=== PATIENT | male | born 1990 | race Caucasian/White ===

== ENCOUNTER 2018-10-09 16:17 | Emergency (ER) | payer OTHER ==
[2018-10-09] MEDS ORDERED: Ketorolac 60 MG/2 ML SDV IM ONE (17:27)
--- NOTE | 2018-10-09 17:32 | EDM.PDOC ---
ED HPI GENERAL MEDICAL PROBLEM - General Chief Complaint: Back Pain or Injury Stated Complaint: BACK INJURY Time Seen by Provider: 10/09/18 17:20 Source of Information: Reports: Patient History Limitations: Reports: No Limitations - History of Present Illness INITIAL COMMENTS - FREE TEXT/NARRATIVE: History of present illness: []Patient has been pushing a 400 pound Tong at work and in the last 2 days has been having more more upper back pain mostly on the right side between the shoulder blades. Patient has had intermittent numbness and tingling to his right hand denies any neck pain or weakness. Patient does not have any shoulder joint pain. Review of systems: As per history of present illness and below otherwise all systems reviewed and negative. Past medical history: As per history of present illness and as reviewed below otherwise noncontributory. Surgical history: As per history of present illness and as reviewed below otherwise noncontributory. Social history: No reported history of drug or alcohol abuse. Family history: As per history of present illness and as reviewed below otherwise noncontributory. Physical exam: General: Well developed, well nourished in NAD HEENT: Atraumatic, normocephalic, pupils reactive, negative for conjunctival pallor or scleral icterus, mucous membranes moist, throat clear, neck supple, nontender, no cervical tenderness to palpation no step-offs trachea midline. Lungs: Clear to auscultation, breath sounds equal bilaterally, chest nontender. Upper posterior chest tender below the scapula on the right there is no vertebral tenderness 6 spine Heart: S1S2, regular, negative for clicks, rubs, or JVD. Abdomen: NABS, Soft, nondistended, nontender. Negative for masses or hepatosplenomegaly. Negative for costovertebral tenderness. Pelvis: Stable nontender. Genitourinary: Deferred. Rectal: Deferred. Extremities: Atraumatic, negative for cords or calf pain. Neurovascular unremarkable. Neuro: Awake, alert, oriented. Cranial nerves II through XII unremarkable. Cerebellum unremarkable. Motor and sensory unremarkable throughout. Exam nonfocal. Skin:warm and dry Diagnostics: None Therapeutics: Toradol IM ED Course: Unremarkable Impression: Musculoskeletal spasm upper back Prescriptions: Flexeril Plan: Follow-up with PMD, request physical therapy., Heat, ibuprofen and Flexeril as directed. Definitive disposition and diagnosis as appropriate pending reevaluation and review of above. Right Back Pain Score (Numeric/FACES): 4 - Related Data Allergies Allergy/AdvReac Type Severity Reaction Status Date / Time No Known Allergies Allergy Verified 10/09/18 16:36 Home Meds: Home Meds Cyclobenzaprine [Flexeril] 10 mg PO BID PRN #12 tab 10/09/18 [Rx] Past Medical History - Past Health History Medical/Surgical History: Denies Medical/Surgical History - Past Surgical History GI Surgical History: Reports: Appendectomy Musculoskeletal Surgical History: Reports: Arthroscopic Knee, Arthroscopic Procedure, Shoulder Surgery Social & Family History - Family History Family Medical History: Noncontributory - Tobacco Use Smoking Status *Q: Current Every Day Smoker Years of Tobacco use: 19 Packs/Tins Daily: 0.5 - Recreational Drug Use Recreational Drug Use: No ED ROS GENERAL - Review of Systems Review Of Systems: ROS reveals no pertinent complaints other than HPI. ED EXAM, UPPER BACK/NECK PAIN - Physical Exam Exam: See Below (See history of present illness) Course - Vital Signs Last Recorded V/S: Last Vital Signs Temp Pulse 80 10/09/18 16:30 Resp 18 10/09/18 16:30 BP 117/61 10/09/18 16:30 Pulse Ox 98 10/09/18 16:30 - Orders/Labs/Meds Meds: Medications Discontinued Medications Generic Name Dose Route Start Last Admin Trade Name Freq PRN Reason Stop Dose Admin Ketorolac Tromethamine 60 mg 10/09/18 17:27 Toradol IM 10/09/18 17:28 ONETIME ONE Departure - Departure Time of Disposition: 17:31 Disposition: Home, Self-Care 01 Condition: Good Clinical Impression: Upper back pain on right side - Discharge Information *PRESCRIPTION DRUG MONITORING PROGRAM REVIEWED*: No *COPY OF PRESCRIPTION DRUG MONITORING REPORT IN PATIENT JOHNSON: No Prescriptions: Cyclobenzaprine [Flexeril] 10 mg PO BID PRN #12 tab PRN Reason: Pain Referrals: PCP,Unknown [Primary Care Provider] - Forms: ED Department Discharge Additional Instructions: The following information is given to patients seen in the emergency department who are being discharged to home. This information is to outline your options for follow-up care. We provide all patients seen in our emergency department with a follow-up referral. The need for follow-up, as well as the timing and circumstances, are variable depending upon the specifics of your emergency department visit. If you don't have a primary care physician on staff, we will provide you with a referral. We always advise you to contact your personal physician following an emergency department visit to inform them of the circumstance of the visit and for follow-up with them and/or the need for any referrals to a consulting specialist. The emergency department will also refer you to a specialist when appropriate. This referral assures that you have the opportunity for follow-up care with a specialist. All of these measure are taken in an effort to provide you with optimal care, which includes your follow-up. Under all circumstances we always encourage you to contact your private physician who remains a resource for coordinating your care. When calling for follow-up care, please make the office aware that this follow-up is from your recent emergency room visit. If for any reason you are refused follow-up, please contact the [facility] Emergency Department at and asked to speak to the emergency department charge nurse.
== END 2018-10-09 17:50 | disposition home or self-care (01) ==
LOC: MW.ED 16:17
DX: M62.830 Muscle spasm of back (principal); F17.210 Nicotine dependence, cigarettes, uncomplicated
CPT/HCPCS: 96372; 99283; J1885

== ENCOUNTER 2018-11-26 13:42 | Emergency (ER) | payer SELFPAY ==
--- NOTE | 2018-11-26 13:51 | EDM.PDOC ---
ED HPI GENERAL MEDICAL PROBLEM - General Chief Complaint: Lower Extremity Injury/Pain Stated Complaint: INJURED ANKLE Time Seen by Provider: 11/26/18 13:47 - History of Present Illness INITIAL COMMENTS - FREE TEXT/NARRATIVE: HISTORY AND PHYSICAL: History of present illness: Past 28-year-old white male presents with a concern of acute left knee and right ankle injury occurred 2 days prior when he fell he denies other trauma or concern Review of systems: As per history of present illness and below otherwise all systems reviewed and negative. Past medical history: As per history of present illness and as reviewed below otherwise noncontributory. Surgical history: As per history of present illness and as reviewed below otherwise noncontributory. Social history: No reported history of drug or alcohol abuse. Family history: As per history of present illness and as reviewed below otherwise noncontributory. Physical exam: HEENT: Atraumatic, normocephalic, pupils reactive, negative for conjunctival pallor or scleral icterus, mucous membranes moist, throat clear, neck supple, nontender, trachea midline. Lungs: Clear to auscultation, breath sounds equal bilaterally, chest nontender. Heart: S1S2, regular, negative for clicks, rubs, or JVD. Abdomen: Soft, nondistended, nontender. Negative for masses or hepatosplenomegaly. Negative for costovertebral tenderness. Pelvis: Stable nontender. Genitourinary: Deferred. Rectal: Deferred. Extremities: Left knee swelling and tenderness in the region of the medial collateral ligament and right ankle has some mild tenderness in the region of lateral malleolus there is no gross deformity joint is grossly stable neurovascular exam is normal Neuro: Awake, alert, oriented. Cranial nerves II through XII unremarkable. Cerebellum unremarkable. Motor and sensory unremarkable throughout. Exam nonfocal. Diagnostics: X-ray left knee/right ankle Therapeutics: None Impression: #1 left knee injury/right ankle injury Definitive disposition and diagnosis as appropriate pending reevaluation and review of above. - Related Data Allergies Allergy/AdvReac Type Severity Reaction Status Date / Time No Known Allergies Allergy Verified 11/26/18 13:48 Home Meds: Home Meds . [No Known Home Meds] 11/26/18 [History] Past Medical History - Past Health History Medical/Surgical History: Denies Medical/Surgical History - Past Surgical History GI Surgical History: Reports: Appendectomy Musculoskeletal Surgical History: Reports: Arthroscopic Knee, Arthroscopic Procedure, Shoulder Surgery Social & Family History - Family History Family Medical History: Noncontributory Review of Systems - Review of Systems Review Of Systems: ROS reveals no pertinent complaints other than HPI. ED EXAM, GENERAL - Physical Exam Exam: See Below (dictation) Course - Vital Signs Last Recorded V/S: Last Vital Signs Temp 36.4 C 11/26/18 13:48 Pulse 111 H 11/26/18 13:48 Resp 18 11/26/18 13:48 BP 131/91 H 11/26/18 13:48 Pulse Ox 97 11/26/18 13:48 - Orders/Labs/Meds Orders: Active Orders 24 hr Category Date Time Status Ankle Min 3V Rt [CR] Stat Exams 11/26/18 13:49 Taken Departure - Departure Time of Disposition: 14:34 Disposition: Home, Self-Care 01 Condition: Good Clinical Impression: Ankle injury, Knee injury - Discharge Information Referrals: PCP,Unknown [Primary Care Provider] - Forms: ED Department Discharge Additional Instructions: The following information is given to patients seen in the emergency department who are being discharged to home. This information is to outline your options for follow-up care. We provide all patients seen in our emergency department with a follow-up referral. The need for follow-up, as well as the timing and circumstances, are variable depending upon the specifics of your emergency department visit. If you don't have a primary care physician on staff, we will provide you with a referral. We always advise you to contact your personal physician following an emergency department visit to inform them of the circumstance of the visit and for follow-up with them and/or the need for any referrals to a consulting specialist. The emergency department will also refer you to a specialist when appropriate. This referral assures that you have the opportunity for followup care with a specialist. All of these measure are taken in an effort to provide you with optimal care, which includes your followup. Under all circumstances we always encourage you to contact your private physician who remains a resource for coordinating your care. When calling for followup care, please make the office aware that this follow-up is from your recent emergency room visit. If for any reason you are refused follow-up, please contact the [facility] emergency department at and asked to speak to the emergency department charge nurse. [facility] Professional Building [address] [place] [address], [address] [place] [address] Crutches as directed diclofenac as prescribed follow-up orthopedic clinic above as needed as discussed return as needed as discussed - My Orders Last 24 Hours: My Active Orders 11/26/18 13:49 Ankle Min 3V Rt [CR] Stat - Assessment/Plan Last 24 Hours: My Active Orders 11/26/18 13:49 Ankle Min 3V Rt [CR] Stat
--- NOTE | 2018-11-26 14:31 | CR ---
EXAMINATION: Left knee HISTORY: Pain COMPARISON: None TECHNIQUE: 3 views FINDINGS/IMPRESSION: There is no acute osseous abnormality, dislocation, or fracture. Bone mineralization and joint spaces are preserved. There is medial medial and prepatellar soft tissue swelling without an underlying joint effusion.
--- NOTE | 2018-11-26 14:35 | CR ---
EXAMINATION: Right ankle HISTORY: Pain COMPARISON: None TECHNIQUE: 3 views FINDINGS/IMPRESSION: There is no acute osseous abnormality, dislocation, or fracture. Bone mineralization and joint spaces are preserved. Mild soft tissue swelling overlying the anterior aspect of the ankle and overlying the lateral malleolus.
== END 2018-11-26 14:55 | disposition home or self-care (01) ==
LOC: MW.ED 13:42
DX: S89.91XA Unspecified injury of right lower leg, initial encounter (principal); S99.911A Unspecified injury of right ankle, initial encounter; W19.XXXA Unspecified fall, initial encounter
CPT/HCPCS: 73562-26-LT; 73562-LT; 73610-26-RT; 73610-RT; 99283-25

== ENCOUNTER 2020-09-27 00:24 | Emergency (ER) | payer SELFPAY ==
[2020-09-27] MEDS ORDERED: Lactated Ringers 1,000 ML IV ONE (00:34)
[2020-09-27] MEDS ORDERED: LORazepam 2 MG/ML SDV IVPUSH ONE (00:35)
--- NOTE | 2020-09-27 01:11 | CR ---
HISTORY: Chest pain COMPARISON: None available FINDINGS: A portable erect AP view of the chest was obtained at 0053 hours. The lungs are clear. No focal or diffuse infiltrates are present. The heart is normal in size. The mediastinum is normal in appearance. The osseous structures are normal in appearance for the patient`s age. IMPRESSION: Normal portable chest single view. Dictated by Grant Long MD @ Sep 27 2020 1:08AM Signed by Dr. Grant Long @ Sep 27 2020 1:08AM
[2020-09-27 01:30] LABS: ACETAMINOPHEN <2.0 ug/mL; BLOOD UREA NITROGEN,BUN 21 mg/dL (7.0-18.0); CARBON DIOXIDE,CO2 22.6 mmol/L (21.0-32.0); CHLORIDE,CL 99 mmol/L (98-107); GLUCOSE RANDOM 119 mg/dL (74-106); POTASSIUM,K 3.2 mmol/L (3.5-5.1); SODIUM,NA 138 mmol/L (136-148)
[2020-09-27] MEDS ORDERED: Thiamine 200 MG/2 ML MDV IVPUSH ONE (04:08)
--- NOTE | 2020-09-27 04:54 | CT ---
INDICATION: Transient alteration of awareness TECHNIQUE: CT Head without i.v. contrast. COMPARISON: None FINDINGS: CSF space: The ventricles are normal for age. Brain: No evidence of mass, acute infarction or hemorrhage is seen. No mass-effect or midline shift is seen. The brain parenchyma is otherwise normal in appearance with preservation of the hoffman-white matter junction. Calvarium: The visualized paranasal sinuses are well aerated. The mastoid air cells are clear. The visualized orbits are grossly unremarkable. The calvarium is unremarkable in appearance with no fractures identified. IMPRESSION: 1. No evidence of acute infarction, intracranial hemorrhage, or mass-effect seen. Please note that all CT scans at this facility use dose modulation, iterative reconstruction, and/or weight-based dosing when appropriate to reduce radiation dose to as low as reasonably achievable. Dictated by: Chris Dowd MD @ 09/27/2020 04:54:05 (Electronically Signed)
--- NOTE | 2020-09-27 05:11 | EDM.PDOC ---
<Kyree Redmond - Last Filed: 09/27/20 07:32> ED HPI GENERAL MEDICAL PROBLEM - General Chief Complaint: Drug or Alcohol Abuse Stated Complaint: CHEST PAIN Time Seen by Provider: 09/27/20 00:28 - History of Present Illness INITIAL COMMENTS - FREE TEXT/NARRATIVE: CHIEF COMPLAINT(S): Chest pain HISTORY OF PRESENT ILLNESS: This is a 30-year-old man with a past medical history of substance abuse who comes to the emergency department with a chief complaint of chest pain. The patient states that approximately 3 to 4 hours prior to arrival he started to experience chest pain in his chest and abdomen and describes it as both arms were tingling and numb and that his whole body he would clench. He states that he was able to calm down after a while after taking a deep breaths. He denies any radiation of the chest pain to his back. He denies any associated diaphoresis, nausea or vomiting. Denies any prior history of DVT or PE, recent travel, recent surgery, history of CAD. He states that this all began after he took a "mystery shot." He states that there was for more substance and it. He does not recall or know what is in it. He states that prior to this he smoked marijuana, was not working, and recently was single so he started to use more drugs. He states that he never uses dirty needles. He denies any history of endocarditis. In regards to his substance abuse he uses tobacco, marijuana, heroin, cocaine. He states that he does not drink daily and maybe has 1 beer. REVIEW OF SYSTEMS: Constitutional: Denies fever, chills. Eyes: Denies eye pain Ears, Nose, Mouth, & Throat: Denies earache Cardiovascular: Positive for chest pain Respiratory: Denies shortness of breath Gastrointestinal: Denies Nausea, vomiting, diarrhea, hematochezia. Genitourinary: Denies hematuria MSK: Positive for tensing up all of his muscles. Neurological: Positive for numbness in his bilateral arms. Denies blurred vision, headache, weakness Psychiatric: Denies depression PAST MEDICAL HISTORY: As per history of present illness and as reviewed below otherwise noncontributory. SURGICAL HISTORY: As per history of present illness and as reviewed below otherwise noncontributory. SOCIAL HISTORY: As per history of present illness and as reviewed below otherwise noncontributory. FAMILY HISTORY: As per history of present illness and as reviewed below otherwise noncontributory. EXAMINATION OF ORGAN SYSTEMS/BODY AREAS: Constitutional: Blood pressure was 160/109, heart rate 113, respiratory rate 30 with an oxygen saturation of 98% on room air. Temperature 36.6 General: Anxiously appearing man who is cooperative Psychiatric: Appears anxious Eyes: No scleral icterus or conjunctival erythema pupils were 5 to 6 mm and reactive to light. Extraocular movements were intact. No nystagmus ENMT: Moist mucous membranes. No pharyngeal erythema Cardiovascular: Tachycardic but regular no gallops, murmurs, or rubs. Bilateral upper extremity pulses symmetric and intact. No peripheral edema. No JVD. Respiratory: Lungs clear to auscultation bilaterally. No wheezes, rales, or rhonchi. Gastrointestinal: Soft, non-tender, non-distended. Hyperactive bowel sounds Genitourinary: No suprapubic tenderness Musculoskeletal: Normal range of motion. Skin: The patient has excoriations and small ulcers throughout his body consistent with methamphetamine induced skin picking these areas do not appear to be infected. There are no Osler's nodes or Janeway lesions or petechiae Neurological: Alert, GCS 15 MEDICAL DECISION MAKING AND COURSE IN THE ED WITH INTERPRETATION/REVIEW OF DIAGNOSTIC STUDIES: This is a 30-year-old man a past medical history of substance abuse disorder who comes to the emergency department with atypical chest pain who appears anxious who is tachycardic and hypertensive who appears to be undergoing sympathomimetic response likely secondary to drug usage. Given his chest pain we did obtain an EKG which did not reveal any acute signs of ischemia. Will obtain CBC, coags, lactic acid, CMP, troponin x1 given it is already at the 4-hour maria t., CPK, serum drug screen, urine drug screen and chest x-ray. We will provide the patient with 2 mg of IV Ativan given his sympathomimetic response. Laboratory: CBC is unremarkable. Coags are within normal limits. Lactic acid is 0.9. CMP reveals hypokalemia at 3.2 likely reactive secondary to sympathomimetic response, hyperglycemia at 119, mildly elevated bilirubin at 1.1 without any transaminitis. Troponin is negative. CPK is normal. Salicylates are negative. Tylenol is negative. Alcohol is negative. Repeat Tylenol is negative. Twelve-lead EKG interpreted by myself. Sinus tachycardia at a rate of 114 beats per minute. Normal axis. NJ interval is 160 ms. QRS duration is [address] segments are normal without elevations or depressions. No Q waves present. Hypertrophy not noted. No prior EKGs in our system. Interpretation: Sinus tachycardia dated. The radiological images were viewed by myself along with reading the report from the radiologist. Chest x-ray does not reveal an acute cardiopulmonary process. After period of observation the patient had yet to provide a urine sample. We did attempt to try and get the patient up however he was sleepy and unsteady on his feet. Therefore at this time we will observe the patient. We will try again in a while. On retry the patient was alert and knew he was in the hospital however he was still unsteady on his feet. At this time given his unsteadiness and his drowsiness will obtain a CT head without contrast and do a straight cath for UDS. At the time of our multiple reevaluations his blood pressure and heart rate had significantly improved. The patient was not anxious. He was still having some twitching consistent with methamphetamine intoxication UDS was positive for methamphetamine The radiological images were viewed by myself along with reading the report from the radiologist. CT head without contrast does not reveal any acute intracranial abnormality. After period of observation we did reevaluate the patient. At this time he is alert and oriented x4. The patient does not have a ride home therefore we attempted to contact a girl named "Princess Reyna" And his mother. His mother did answer however she does not live here in [place] and told us to call his father. I did discuss this with the patient. He did provide me with his father's number but he does not want any information shared therefore we cannot use his father to come and pick him up. After approximately 30 more minutes the patient was able to ambulate on his own. Was ANO x4. I did discuss with him at this time that his work-up is negative. I did encourage him to quit methamphetamine use and I discussed that I could provide him with resources to help him with that. He states that he does not want any resources. I did discuss with him that if he were to have any new or worsening symptoms he should return to the emergency department. He was amenable to discharge at this time and had no further questions DISPOSITION: Patient was discharged home in stable condition. CONDITION: Fair PROCEDURES: None FINAL IMPRESSION(S)/DIAGNOSES: 1. Acute chest pain likely secondary to methamphetamine use 2. Acute methamphetamine intoxication Kyree Redmond M.D. Treatments GUT CARRIER: Reports: EKG Generalized Pain Score (Numeric/FACES): 6 - Related Data Allergies Allergy/AdvReac Type Severity Reaction Status Date / Time No Known Allergies Allergy Verified 09/27/20 00:30 Home Meds: Home Meds . [No Known Home Meds] 11/26/18 [History] Past Medical History - Past Health History Medical/Surgical History: Denies Medical/Surgical History HEENT History: Reports: None Cardiovascular History: Reports: None Respiratory History: Reports: None Gastrointestinal History: Reports: None Genitourinary History: Reports: None Musculoskeletal History: Reports: None Neurological History: Reports: None Psychiatric History: Reports: Addiction Endocrine/Metabolic History: Reports: None Hematologic History: Reports: None Immunologic History: Reports: None Oncologic (Cancer) History: Reports: None Dermatologic History: Reports: None - Infectious Disease History Infectious Disease History: Reports: None - Past Surgical History Head Surgeries/Procedures: Reports: None HEENT Surgical History: Reports: None Cardiovascular Surgical History: Reports: None Respiratory Surgical History: Reports: None GI Surgical History: Reports: Appendectomy Male Surgical History: Reports: None Endocrine Surgical History: Reports: None Neurological Surgical History: Reports: C-Spine Musculoskeletal Surgical History: Reports: Arthroscopic Knee, Arthroscopic Procedure, Shoulder Surgery, Other (See Below) Other Musculoskeletal Surgeries/Procedures:: reconstructive surgery on both shoulders and hands Oncologic Surgical History: Reports: None Dermatological Surgical History: Reports: None Social & Family History - Family History Family Medical History: No Pertinent Family History - Caffeine Use Caffeine Use: Reports: Coffee, Soda - Recreational Drug Use Recreational Drug Use: Yes Drug Use in Last 12 Months: Yes Recreational Drug Type: Reports: Cocaine, Heroin, Methamphetamine Recreational Drug Use Frequency: Binges ED ROS GENERAL - Review of Systems Review Of Systems: See Below ED EXAM, GENERAL - Physical Exam Exam: See Below Departure - Departure Time of Disposition: 07:33 Disposition: Home, Self-Care 01 Condition: Fair Clinical Impression: Methamphetamine intoxication - Discharge Information *PRESCRIPTION DRUG MONITORING PROGRAM REVIEWED*: No *COPY OF PRESCRIPTION DRUG MONITORING REPORT IN PATIENT JOHNSON: No Instructions: Finding Treatment for Addiction, Methamphetamines Use Disorder Referrals: PCP,None [Primary Care Provider] - Forms: ED Department Discharge Additional Instructions: Your evaluated today on an emergent basis. At this time your work-up was negative. At this time I do believe your symptoms are secondary to using methamphetamine. Methamphetamine use has risks including heart attack, addiction, and even . I do recommend you quit using methamphetamine. Please follow-up with primary care for further options for rehabilitation. Return to the emergency department if you have any new or worsening symptoms. [facility] [address] [place] [id number] [facility] [address] [place] [id number] The patient is informed of any results of their evaluation and diagnostic workup and all questions are answered. They are given discharge instructions and return precautions. The patient is stable for discharge. The patient states they understand and agree with the plan and that they will return if their symptoms get worse or if they have any new concerns. The following information is given to patients seen in the emergency department who are being discharged to home. This information is to outline your options for follow-up care. We provide all patients seen in our emergency department with a follow-up referral. The need for follow-up, as well as the timing and circumstances, are variable depending upon the specifics of your emergency department visit. If you don't have a primary care physician on staff, we will provide you with a referral. We always advise you to contact your personal physician following an emergency department visit to inform them of the circumstance of the visit and for follow-up with them and/or the need for any referrals to a consulting specialist. The emergency department will also refer you to a specialist when appropriate. This referral assures that you have the opportunity for follow-up care with a specialist. All of these measure are taken in an effort to provide you with optimal care, which includes your follow-up. Under all circumstances we always encourage you to contact your private physician who remains a resource for coordinating your care. When calling for follow-up care, please make the office aware that this follow-up is from your recent emergency room visit. If for any reason you are refused follow-up, please contact the [facility] Emergency Department at and asked to speak to the emergency department charge nurse. Sepsis Event Note (ED) - Evaluation Sepsis Screening Result: No Definite Risk <Rashawn Beckett - Last Filed: 09/27/20 17:12> Course - Vital Signs Last Recorded V/S: Last Vital Signs Temp 98.2 F 09/27/20 07:33 Pulse 112 H 09/27/20 07:33 Resp 18 09/27/20 07:33 BP 134/92 H 09/27/20 07:33 Pulse Ox 97 09/27/20 07:33 - Orders/Labs/Meds Labs: Laboratory Tests 09/27/20 09/27/20 09/27/20 Range/Units 00:48 00:48 00:48 WBC 7.98 (4.0-11.0) K/uL RBC 4.32 L (4.50-5.90) M/uL Hgb 14.4 (13.0-17.0) g/dL Hct 39.7 (38.0-50.0) % MCV 91.9 (80.0-98.0) fL MCH 33.3 H (27.0-32.0) pg MCHC 36.3 (31.0-37.0) g/dL RDW Std Deviation 35.1 (28.0-62.0) fl RDW Coeff of Tim 11 (11.0-15.0) % Plt Count 237 (150-400) K/uL MPV 8.90 (7.40-12.00) fL Neut % (Auto) 78.5 (48.0-80.0) % Lymph % (Auto) 13.8 L (16.0-40.0) % [place] % (Auto) 6.6 (0.0-15.0) % Eos % (Auto) 0.8 (0.0-7.0) % Baso % (Auto) 0.3 (0.0-1.5) % Neut # (Auto) 6.3 H (1.4-5.7) K/uL Lymph # (Auto) 1.1 (0.6-2.4) K/uL [place] # (Auto) 0.5 (0.0-0.8) K/uL Eos # (Auto) 0.1 (0.0-0.7) K/uL Baso # (Auto) 0.0 (0.0-0.1) K/uL INR 1.08 Lactate (0.20-2.00) mmol/L Sodium 138 (136-148) mmol/L Potassium 3.2 L (3.5-5.1) mmol/L Chloride 99 (98-107) mmol/L Carbon Dioxide 22.6 (21.0-32.0) mmol/L BUN 21 H (7.0-18.0) mg/dL Creatinine 1.3 (0.8-1.3) mg/dL Est Cr Clr Drug Dosing 85.29 mL/min Estimated GFR (MDRD) > 60.0 ml/min Glucose 119 H (74-106) mg/dL POC Glucose (60-110) mg/dL Calcium 9.4 (8.5-10.1) mg/dL Magnesium 1.9 (1.8-2.4) mg/dL Total Bilirubin 1.1 H (0.2-1.0) mg/dL AST 23 (15-37) IU/L ALT 34 (14-63) IU/L Alkaline Phosphatase 78 (46-116) U/L Creatine Kinase (26-308) U/L Troponin I < 0.050 (0.000-0.056) ng/mL Total Protein 7.2 (6.4-8.2) g/dL Albumin 4.0 (3.4-5.0) g/dL Globulin 3.2 (2.6-4.0) g/dL Albumin/Globulin Ratio 1.3 (0.9-1.6) Salicylates 11.4 (0-20) mg/dL Urine Opiates Screen (NEGATIVE) Ur Oxycodone Screen (NEGATIVE) Urine Methadone Screen (NEGATIVE) Acetaminophen <2.0 ug/mL Ur Barbiturates Screen (NEGATIVE) Ur Phencyclidine Scrn (NEGATIVE) Ur Amphetamine Screen (NEGATIVE) U Methamphetamines Scrn (NEGATIVE) U Benzodiazepines Scrn (NEGATIVE) U Cocaine Metab Screen (NEGATIVE) U Marijuana (THC) Screen (NEGATIVE) Ethyl Alcohol < 3.0 mg/dL SARS-CoV-2 RNA (BEHZAD) (NEGATIVE) 09/27/20 09/27/2021 Range/Units 00:48 00:48 04:05 WBC (4.0-11.0) K/uL RBC (4.50-5.90) M/uL Hgb (13.0-17.0) g/dL Hct (38.0-50.0) % MCV (80.0-98.0) fL MCH (27.0-32.0) pg MCHC (31.0-37.0) g/dL RDW Std Deviation (28.0-62.0) fl RDW Coeff of Tim (11.0-15.0) % Plt Count (150-400) K/uL MPV (7.40-12.00) fL Neut % (Auto) (48.0-80.0) % Lymph % (Auto) (16.0-40.0) % [place] % (Auto) (0.0-15.0) % Eos % (Auto) (0.0-7.0) % Baso % (Auto) (0.0-1.5) % Neut # (Auto) (1.4-5.7) K/uL Lymph # (Auto) (0.6-2.4) K/uL [place] # (Auto) (0.0-0.8) K/uL Eos # (Auto) (0.0-0.7) K/uL Baso # (Auto) (0.0-0.1) K/uL INR Lactate 0.9 (0.20-2.00) mmol/L Sodium (136-148) mmol/L Potassium (3.5-5.1) mmol/L Chloride (98-107) mmol/L Carbon Dioxide (21.0-32.0) mmol/L BUN (7.0-18.0) mg/dL Creatinine (0.8-1.3) mg/dL Est Cr Clr Drug Dosing mL/min Estimated GFR (MDRD) ml/min Glucose (74-106) mg/dL POC Glucose 71 (60-110) mg/dL Calcium (8.5-10.1) mg/dL Magnesium (1.8-2.4) mg/dL Total Bilirubin (0.2-1.0) mg/dL AST (15-37) IU/L ALT (14-63) IU/L Alkaline Phosphatase (46-116) U/L Creatine Kinase 111 (26-308) U/L Troponin I (0.000-0.056) ng/mL Total Protein (6.4-8.2) g/dL Albumin (3.4-5.0) g/dL Globulin (2.6-4.0) g/dL Albumin/Globulin Ratio (0.9-1.6) Salicylates (0-20) mg/dL Urine Opiates Screen (NEGATIVE) Ur Oxycodone Screen (NEGATIVE) Urine Methadone Screen (NEGATIVE) Acetaminophen ug/mL Ur Barbiturates Screen (NEGATIVE) Ur Phencyclidine Scrn (NEGATIVE) Ur Amphetamine Screen (NEGATIVE) U Methamphetamines Scrn (NEGATIVE) U Benzodiazepines Scrn (NEGATIVE) U Cocaine Metab Screen (NEGATIVE) U Marijuana (THC) Screen (NEGATIVE) Ethyl Alcohol mg/dL SARS-CoV-2 RNA (BEHZAD) (NEGATIVE) 09/27/20 09/27/20 09/27/20 Range/Units 04:22 04:30 05:50 WBC (4.0-11.0) K/uL RBC (4.50-5.90) M/uL Hgb (13.0-17.0) g/dL Hct (38.0-50.0) % MCV (80.0-98.0) fL MCH (27.0-32.0) pg MCHC (31.0-37.0) g/dL RDW Std Deviation (28.0-62.0) fl RDW Coeff of Tim (11.0-15.0) % Plt Count (150-400) K/uL MPV (7.40-12.00) fL Neut % (Auto) (48.0-80.0) % Lymph % (Auto) (16.0-40.0) % [place] % (Auto) (0.0-15.0) % Eos % (Auto) (0.0-7.0) % Baso % (Auto) (0.0-1.5) % Neut # (Auto) (1.4-5.7) K/uL Lymph # (Auto) (0.6-2.4) K/uL [place] # (Auto) (0.0-0.8) K/uL Eos # (Auto) (0.0-0.7) K/uL Baso # (Auto) (0.0-0.1) K/uL INR Lactate (0.20-2.00) mmol/L Sodium (136-148) mmol/L Potassium (3.5-5.1) mmol/L Chloride (98-107) mmol/L Carbon Dioxide (21.0-32.0) mmol/L BUN (7.0-18.0) mg/dL Creatinine (0.8-1.3) mg/dL Est Cr Clr Drug Dosing mL/min Estimated GFR (MDRD) ml/min Glucose (74-106) mg/dL POC Glucose (60-110) mg/dL Calcium (8.5-10.1) mg/dL Magnesium (1.8-2.4) mg/dL Total Bilirubin (0.2-1.0) mg/dL AST (15-37) IU/L ALT (14-63) IU/L Alkaline Phosphatase (46-116) U/L Creatine Kinase (26-308) U/L Troponin I (0.000-0.056) ng/mL Total Protein (6.4-8.2) g/dL Albumin (3.4-5.0) g/dL Globulin (2.6-4.0) g/dL Albumin/Globulin Ratio (0.9-1.6) Salicylates (0-20) mg/dL Urine Opiates Screen NEGATIVE (NEGATIVE) Ur Oxycodone Screen NEGATIVE (NEGATIVE) Urine Methadone Screen NEGATIVE (NEGATIVE) Acetaminophen <2.0 ug/mL Ur Barbiturates Screen NEGATIVE (NEGATIVE) Ur Phencyclidine Scrn NEGATIVE (NEGATIVE) Ur Amphetamine Screen NEGATIVE (NEGATIVE) U Methamphetamines Scrn POSITIVE (NEGATIVE) U Benzodiazepines Scrn NEGATIVE (NEGATIVE) U Cocaine Metab Screen NEGATIVE (NEGATIVE) U Marijuana (THC) Screen NEGATIVE (NEGATIVE) Ethyl Alcohol mg/dL SARS-CoV-2 RNA (BEHZAD) NEGATIVE (NEGATIVE) Meds: Medications Discontinued Medications Generic Name Dose Route Start Last Admin Trade Name Freq PRN Reason Stop Dose Admin Lactated Ringer's 1,000 mls @ 999 mls/hr 09/27/20 00:34 09/27/20 00:43 Ringers, Lactated IV 09/27/20 01:34 999 mls/hr .BOLUS ONE Administration Lorazepam 2 mg 09/27/20 00:35 09/27/20 00:44 Ativan IVPUSH 09/27/20 00:36 2 mg ONETIME ONE Administration Thiamine HCl 50 mg 09/27/20 04:08 09/27/20 04:19 Vitamin B-1 IVPUSH 09/27/20 04:09 50 mg ONETIME ONE Administration - Re-Assessments/Exams Free Text/Narrative Re-Assessment/Exam: 09/27/20 07:04 Patient care transitioned from night-team ED physician pending clinical sobriety, reassessment, and disposition. Anticipate d/c home when family can be reached. Sepsis Event Note (ED) - Focused Exam Vital Signs: Vital Signs Temp Pulse Resp BP Pulse Ox 09/27/20 07:33 98.2 F 112 H 18 134/92 H 97 09/27/20 07:08 99 16 119/78 116 H 09/27/20 05:23 89 14 115/88 94 L
== END 2020-09-27 07:42 | disposition home or self-care (01) ==
LOC: MW.ED 00:24
DX: R07.9 Chest pain, unspecified (principal); F15.129 Other stimulant abuse with intoxication, unspecified; Z20.822 Contact with and (suspected) exposure to COVID-19
CPT/HCPCS: 36415; 70450; 71045; 80053; 80143; 80179; 80305; 80307; 82550; 82962; 83605; 83735; 84484; 85025; 85610; 87635; 93005; 96374; 96375; 99285; J2060; J3411; J7120; U0002

== ENCOUNTER 2021-09-04 11:52 | Emergency (ER) | payer MEDICAID ==
[2021-09-04] MEDS ORDERED: Ketorolac 60 MG/2 ML SDV IM ONE (13:25)
[2021-09-04] MEDS ORDERED: Lidocaine 2% Viscous Solution 15 ML UD PO ONE (13:27)
[2021-09-04] MEDS ORDERED: Benzocaine 20% Topical Spray UD MUCMEM ONE (13:27)
--- NOTE | 2021-09-04 13:34 | EDM.PDOC ---
ED HPI GENERAL MEDICAL PROBLEM - General Chief Complaint: General Stated Complaint: TOOTH PROBLEM Time Seen by Provider: 09/04/21 12:57 Source of Information: Reports: Patient History Limitations: Reports: No Limitations - History of Present Illness INITIAL COMMENTS - FREE TEXT/NARRATIVE: Presents reporting dental pain and abscess. The patient states that yesterday he started with pain and swelling in the left lower jaw. He has a tooth that has rotted off to the gumline there and he has had abscess of that tooth twice previously. He does have an appointment set up for this coming Friday with a dentist for definitive management. No fever, difficulty swallowing or breathing. He is otherwise healthy. He does have untreated hepatitis C. Left Jaw Pain Score (Numeric/FACES): 10 - Related Data Allergies Allergy/AdvReac Type Severity Reaction Status Date / Time No Known Allergies Allergy Verified 09/04/21 12:22 Home Meds: Home Meds Clindamycin HCl 1 cap PO TID #30 capsule 09/04/21 [Rx] Ibuprofen [Ibu] 800 mg PO Q8HR PRN #10 tablet 09/04/21 [Rx] Past Medical History - Past Health History Medical/Surgical History: Denies Medical/Surgical History HEENT History: Reports: None Cardiovascular History: Reports: None Respiratory History: Reports: None Gastrointestinal History: Reports: None Genitourinary History: Reports: None Musculoskeletal History: Reports: None Neurological History: Reports: None Psychiatric History: Reports: Addiction Endocrine/Metabolic History: Reports: None Hematologic History: Reports: None Immunologic History: Reports: None Oncologic (Cancer) History: Reports: None Dermatologic History: Reports: None - Infectious Disease History Infectious Disease History: Reports: None - Past Surgical History Head Surgeries/Procedures: Reports: None HEENT Surgical History: Reports: None Cardiovascular Surgical History: Reports: None Respiratory Surgical History: Reports: None GI Surgical History: Reports: Appendectomy Male Surgical History: Reports: None Endocrine Surgical History: Reports: None Neurological Surgical History: Reports: C-Spine Musculoskeletal Surgical History: Reports: Arthroscopic Knee, Arthroscopic Procedure, Shoulder Surgery, Other (See Below) Other Musculoskeletal Surgeries/Procedures:: reconstructive surgery on both shoulders and hands Oncologic Surgical History: Reports: None Dermatological Surgical History: Reports: None Social & Family History - Family History Family Medical History: No Pertinent Family History - Tobacco Use Tobacco Use Status *Q: Former Tobacco User Used Tobacco, but Quit: Yes Month/Year Tobacco Last Used: 05/2021 - Caffeine Use Caffeine Use: Reports: Coffee - Recreational Drug Use Recreational Drug Use: No ED ROS GENERAL - Review of Systems Review Of Systems: Comprehensive ROS is negative, except as noted in HPI. ED EXAM, GENERAL - Physical Exam Exam: See Below Exam Limited By: No Limitations General Appearance: Alert, Mild Distress (due to pain) Ears: Normal External Exam, Normal TMs Nose: Normal Inspection, Normal Mucosa Throat/Mouth: Other (Teeth 19 and 30 are rotted to the gumline with deep caries. Soft to swelling over the jaw adjacent to tooth #19. No gingival swelling or erythema) Head: Atraumatic, Normocephalic Neck: Normal Inspection Respiratory/Chest: No Respiratory Distress Cardiovascular: Normal Peripheral Pulses, Regular Rate, Rhythm, No Murmur Back Exam: Normal Inspection Neurological: Alert, Oriented Psychiatric: Normal Affect, Normal Mood Skin Exam: Warm, Dry, Intact, Normal Color, No Rash Lymphatic: No Adenopathy Course - Vital Signs Last Recorded V/S: Last Vital Signs Temp 36.5 C 09/04/21 12:22 Pulse 88 09/04/21 12:22 Resp 20 09/04/21 12:22 BP 122/67 09/04/21 12:22 Pulse Ox 98 09/04/21 12:22 - Orders/Labs/Meds Meds: Medications Discontinued Medications Generic Name Dose Route Start Last Admin Trade Name Enrike PRN Reason Stop Dose Admin Benzocaine 2 each 09/04/21 13:27 Benzocaine 20% Topical [facility] MUCMEM 09/04/21 13:28 ONETIME ONE Ketorolac Tromethamine 60 mg 09/04/21 13:25 Ketorolac 60 Mg/2 Ml Sdv IM 09/04/21 13:26 ONETIME ONE Lidocaine HCl 15 ml 09/04/21 13:27 Lidocaine 2% Viscous Solution 15 Ml Ud PO 09/04/21 13:28 ONETIME ONE Departure - Departure Time of Disposition: 13:35 Disposition: Home, Self-Care 01 Condition: Good Clinical Impression: Dental abscess - Discharge Information Additional Instructions: The following information is given to patients seen in the emergency department who are being discharged to home. This information is to outline your options for follow-up care. We provide all patients seen in our emergency department with a follow-up referral. The need for follow-up, as well as the timing and circumstances, are variable depending upon the specifics of your emergency department visit. If you don't have a primary care physician on staff, we will provide you with a referral. We always advise you to contact your personal physician following an emergency department visit to inform them of the circumstance of the visit and for follow-up with them and/or the need for any referrals to a consulting specialist. The emergency department will also refer you to a specialist when appropriate. This referral assures that you have the opportunity for follow-up care with a specialist. All of these measure are taken in an effort to provide you with optimal care, which includes your follow-up. Under all circumstances we always encourage you to contact your private physician who remains a resource for coordinating your care. When calling for follow-up care, please make the office aware that this follow-up is from your recent emergency room visit. If for any reason you are refused follow-up, please contact the Emergency Department at and asked to speak to the emergency department charge nurse. 1. Take your antibiotic three times a day. 2. Dental Balls: Place one ball over affected tooth gently bite down for 10 minutes. May repeat every 2 hours as needed 3. Ibuprofen 800 mg one every 8 hours as needed for pain. Take with food, 4. Follow-up with your dentist on Friday as previously scheduled. Sepsis Event Note (ED) - Evaluation Sepsis Screening Result: No Definite Risk - Focused Exam Vital Signs: Vital Signs Temp Pulse Resp BP Pulse Ox 09/04/21 12:22 36.5 C 88 20 122/67 98
== END 2021-09-04 14:03 | disposition home or self-care (01) ==
LOC: MW.ED 11:52
DX: K04.7 Periapical abscess without sinus (principal); Z87.891 Personal history of nicotine dependence
CPT/HCPCS: 96372; 99282; A9270; J1885

== ENCOUNTER 2021-12-18 15:28 | Emergency (ER) | payer MEDICAID ==
[2021-12-18] MEDS ORDERED: Ketorolac 30 MG/ML SDV IM STA (15:52)
== END 2021-12-18 16:58 | disposition home or self-care (01) ==
LOC: MW.ED 15:28
DX: M94.0 Chondrocostal junction syndrome [Tietze] (principal); Z72.0 Tobacco use
CPT/HCPCS: 71046; 96372; 99284; J1885

== ENCOUNTER 2021-12-24 10:40 | Emergency (ER) | payer MEDICAID ==
[2021-12-24] MEDS ORDERED: Ibuprofen 600 MG Tab PO ONE (10:52)
== END 2021-12-24 12:04 | disposition home or self-care (01) ==
LOC: MW.ED 10:40
DX: S06.0X0A Concussion without loss of consciousness, initial encounter (principal); S63.501A Unspecified sprain of right wrist, initial encounter; F10.10 Alcohol abuse, uncomplicated; I25.2 Old myocardial infarction; W18.30XA Fall on same level, unspecified, initial encounter
CPT/HCPCS: 70450; 72125; 73110; 99284; A9270; 99283

== ENCOUNTER 2021-12-26 15:36 | Emergency (ER) | payer MEDICAID ==
[2021-12-26 18:34] LABS: C. TRACHOMATIS BY PCR NOT DETECTED; N. GONORRHOEAE BY PCR NOT DETECTED
== END 2021-12-26 18:50 | disposition home or self-care (01) ==
LOC: MW.ED 15:36
DX: Z11.3 Encounter for screening for infections with a predominantly sexual mode of transmission (principal); I25.2 Old myocardial infarction; Z20.2 Contact with and (suspected) exposure to infections with a predominantly sexual mode of transmission
CPT/HCPCS: 87491; 87591; 99283

== ENCOUNTER 2022-02-01 06:01 | Emergency (ER) | payer MEDICAID ==
[2022-02-01] MEDS ORDERED: Orphenadrine 60 MG/2 ML Inj IM ONE ×2 (06:44→08:28)
[2022-02-01] MEDS ORDERED: Ketorolac 60 MG/2 ML SDV IM ONE (06:44)
[2022-02-01] MEDS ORDERED: Dexamethasone 10 MG/ML SDV IM STA (08:28)
== END 2022-02-01 09:17 | disposition home or self-care (01) ==
LOC: MW.ED 06:01
DX: M40.04 Postural kyphosis, thoracic region (principal); Z79.899 Other long term (current) drug therapy; Z90.49 Acquired absence of other specified parts of digestive tract
CPT/HCPCS: 72072; 72128; J1100; J1885; J2360; 96372; 99283; 99284-25

== ENCOUNTER 2022-02-05 11:30 | Emergency (ER) | payer MEDICAID | END 2022-02-05 12:50 | disposition home or self-care (01) | LOC: MW.ED 11:30 | DX: M54.6 Pain in thoracic spine (principal); Z79.899 Other long term (current) drug therapy | CPT/HCPCS: 99283 ==

== ENCOUNTER 2022-06-13 15:43 | Emergency (ER) | payer MEDICAID ==
[2022-06-13] MEDS: diphenhydrAMINE 50 MG/ML SDV IM ONE (16:03)
[2022-06-13] MEDS: LORazepam 2 MG/ML SDV IM ONE (16:03)
[2022-06-13] MEDS: Haloperidol Lactate 5 MG/ML SDV IM ONE (16:03)
[2022-06-13] MEDS: Haloperidol Lactate 5 MG/ML SDV ONE (16:41)
[2022-06-13] MEDS: LORazepam 2 MG/ML SDV ONE (16:42)
[2022-06-13] MEDS: diphenhydrAMINE 50 MG/ML SDV ONE (16:42)
[2022-06-13 19:18] LABS: ACETAMINOPHEN <2.0 ug/mL; BLOOD UREA NITROGEN,BUN 9 mg/dL (7.0-18.0); CHLORIDE,CL 109 mmol/L (98-107); GLUCOSE RANDOM 99 mg/dL (74-106); POTASSIUM,K 3.6 mmol/L (3.5-5.1); SODIUM,NA 146 mmol/L (136-148)
[2022-06-13 19:20] LABS: ESTIMATED GFR 116 mL/min (>60)
== END 2022-06-13 20:30 ==
LOC: MW.ED 15:43
DX: S00.81XA Abrasion of other part of head, initial encounter (principal); F10.129 Alcohol abuse with intoxication, unspecified; Z02.89 Encounter for other administrative examinations; Z86.16 Personal history of COVID-19
CPT/HCPCS: 36415; 70450; 80053; 80143; 80179; 80305; 80307; 81001; 83735; 84443; 85025; 96372; 99284; J1200; J1630; J2060; 93010; 99283

== ENCOUNTER 2022-06-25 15:26 | Emergency (ER) | payer MEDICAID | END 2022-06-25 18:15 | disposition left against medical advice (07) | LOC: MW.ED 15:26 | DX: Z53.21 Procedure and treatment not carried out due to patient leaving prior to being seen by health care provider (principal) ==

== ENCOUNTER 2023-06-24 12:22 | Emergency (ER) | payer SELFPAY ==
[2023-06-24] MEDS ORDERED: Sodium Chloride 0.9% 2.5 ML Syringe FLUSH PRN (12:45)
[2023-06-24] MEDS ORDERED: Sodium Chloride 0.9% 10 ML Syringe FLUSH PRN (12:45)
[2023-06-24] MEDS ORDERED: Sodium Chloride 0.9% 1,000 ML IV ONE (12:45)
[2023-06-24] MEDS ORDERED: LORazepam 2 MG/ML SDV IVPUSH ONE (12:45)
[2023-06-24] MEDS ORDERED: Folic Acid 1 MG Tab PO ONE (12:47)
[2023-06-24] MEDS ORDERED: Thiamine 100 MG Tab PO ONE (12:47)
[2023-06-24] MEDS ORDERED: PHENobarbitaL sodium 260 MG in Sodium Chloride 0.9% 100 ML IV ONE (12:51)
[2023-06-24 12:54] LABS: BASOPHILS ABSOLUTE AUTO 0.05 K/uL (0.00-0.20); BASOPHILS PERCENT AUTO 0.6 % (0.0-1.0); EOSINOPHILS ABSOLUTE AUTO 0.01 K/uL (0.00-0.45); EOSINOPHILS PERCENT AUTO 0.1 % (0.0-6.0); HEMATOCRIT 46.4 % (42.0-52.0); HEMOGLOBIN 17.1 g/dL (14.0-18.0); IMMATURE GRAN ABSOLUTE AUTO 0.02 K/uL (0.00-0.05); IMMATURE GRAN PERCENT AUTO 0.2 % (0.0-0.4); LYMPHOCYTES ABSOLUTE AUTO 1.57 K/uL (1.00-4.80); MEAN CORPUSCULAR HGB CONC 36.9 g/dL (32.0-36.0); MEAN CORPUSCULAR VOLUME 92.2 fL (83.0-99.0); MEAN PLATELET VOLUME 8.5 fL (9.4-12.4); MONOCYTES ABSOLUTE AUTO 0.61 K/uL (0.00-0.80); NEUTROPHILS ABSOLUTE AUTO 6.48 K/uL (1.80-7.70); NEUTROPHILS PERCENT AUTO 74.1 % (41.0-71.0); PLATELET COUNT,PLT 182 K/uL (150-400); RED BLOOD CELL COUNT 5.03 M/uL (4.52-5.90); WHITE BLOOD CELL COUNT,WBC 8.74 K/uL (3.9-11.3)
[2023-06-24 13:04] LABS: A/G RATIO 1.2 (0.9-1.6); BILIRUBIN TOTAL 1.2 mg/dL (0.2-1.0); CALCIUM 9.9 mg/dL (8.5-10.1); CREATININE 1.1 mg/dL (0.8-1.3); EST CRCL DRUG DOSING (CG) 93.49 mL/min; MAGNESIUM 1.7 mg/dL (1.8-2.4); POTASSIUM,K 4.1 mmol/L (3.5-5.1); PROTEIN TOTAL,TP 9.3 g/dL (6.4-8.2)
[2023-06-24] MEDS ORDERED: Nicotine 21 MG/24 Hr Patch TRDERM ONE (18:51)
[2023-06-24 19:18] LABS: APPEARANCE,URINE CLEAR; BILIRUBIN,URINE NEGATIVE (NEGATIVE); COLOR,URINE YELLOW; GLUCOSE,URINE NEGATIVE (NEGATIVE); KETONES,URINE 15 mg/dL (NEGATIVE); LEUKOCYTE ESTERASE,URINE NEGATIVE (NEGATIVE); NITRITE,URINE POSITIVE (NEGATIVE); OCCULT BLOOD,URINE NEGATIVE (NEGATIVE); PROTEIN,URINE NEGATIVE (NEGATIVE)
[2023-06-24 19:22] LABS: AMPHETAMINES SCREEN, URINE NEGATIVE (CUTOFF=500); BARBITURATE SCREEN,URINE PRESUMPTIVE POSITIVE (CUTOFF=200); BENZODIAZEPINES SCREEN,URINE PRESUMPTIVE POSITIVE (CUTOFF=150); BUPRENORPHINE SCREEN,URINE NEGATIVE (CUTOFF=10); METHADONE SCREEN, URINE NEGATIVE (CUTOFF=200); METHAMPHETAMINES SCREEN, URINE NEGATIVE (CUTOFF=500); OXYCODONE SCREEN,URINE NEGATIVE (CUT0FF=100); PCP SCREEN,URINE NEGATIVE (CUTOFF=25); PROPOXYPHENE SCREEN,URINE NEGATIVE (CUTOFF=300); THC SCREEN,URINE 20 NG/ML PRESUMPTIVE POSITIVE (CUTOFF=50)
[2023-06-24 19:36] LABS: EPITHELIAL CELLS,URINE NOT SEEN (NONE-FEW); RBC,URINE 0-2 (0-2/HPF); WBC,URINE 0-2 (0-5/HPF)
[2023-06-24 19:37] LABS: BACTERIA,URINE 1+ (NEGATIVE); MUCUS,URINE LIGHT (NONE-MOD)
== END 2023-06-24 20:00 ==
LOC: MW.ED 12:22
DX: G40.909 Epilepsy, unspecified, not intractable, without status epilepticus (principal); F10.10 Alcohol abuse, uncomplicated; F10.939 Alcohol use, unspecified with withdrawal, unspecified; Z86.16 Personal history of COVID-19
CPT/HCPCS: 36415; 80053; 80305; 80307; 81001; 83735; 85025; 87086; 93005; 96365; 96375; 99285; A9270; J2060; J2560; J3490; J7030; 93010; 99291

== ENCOUNTER 2023-06-28 15:43 | Observation (INO) | payer SELFPAY ==
[2023-06-28] MEDS ORDERED: LORazepam 2 MG/ML SDV IVPUSH ONE ×3 (15:56→17:11)
[2023-06-28] MEDS ORDERED: Sodium Chloride 0.9% 2.5 ML Syringe FLUSH PRN (15:56)
[2023-06-28] MEDS ORDERED: droPERidol 5 MG/2 ML SDV IVPUSH ONE (15:56)
[2023-06-28] MEDS ORDERED: Sodium Chloride 0.9% 10 ML Syringe FLUSH PRN (15:56)
[2023-06-28] MEDS ORDERED: Sodium Chloride 0.9% 1,000 ML IV ONE ×2 (15:56→17:11)
[2023-06-28] MEDS ORDERED: OLANZapine 10 MG in Water For Injection, Sterile 2.1 ML IM ONE (16:01)
[2023-06-28] MEDS ORDERED: LORazepam 2 MG/ML SDV IM ONE (16:01)
[2023-06-28] MEDS ORDERED: OLANZapine 10 MG Vial ONE (16:02)
[2023-06-28] MEDS ORDERED: LORazepam 2 MG/ML SDV ONE ×2 (16:03→17:24)
[2023-06-28] MEDS ORDERED: Water For Injection, Sterile 20 ML ONE (16:06)
[2023-06-28 16:19] LABS: AMPHETAMINES SCREEN, URINE NEGATIVE (CUTOFF=500); BARBITURATE SCREEN,URINE PRESUMPTIVE POSITIVE (CUTOFF=200); BENZODIAZEPINES SCREEN,URINE PRESUMPTIVE POSITIVE (CUTOFF=150); BUPRENORPHINE SCREEN,URINE NEGATIVE (CUTOFF=10); METHADONE SCREEN, URINE NEGATIVE (CUTOFF=200); METHAMPHETAMINES SCREEN, URINE NEGATIVE (CUTOFF=500); OXYCODONE SCREEN,URINE NEGATIVE (CUT0FF=100); PCP SCREEN,URINE NEGATIVE (CUTOFF=25); PROPOXYPHENE SCREEN,URINE NEGATIVE (CUTOFF=300); THC SCREEN,URINE 20 NG/ML NEGATIVE (CUTOFF=50)
[2023-06-28 16:40] LABS: BASOPHILS ABSOLUTE AUTO 0.04 K/uL (0.00-0.20); BASOPHILS PERCENT AUTO 0.5 % (0.0-1.0); EOSINOPHILS ABSOLUTE AUTO 0.01 K/uL (0.00-0.45); EOSINOPHILS PERCENT AUTO 0.1 % (0.0-6.0); HEMATOCRIT 41.3 % (42.0-52.0); HEMOGLOBIN 15.1 g/dL (14.0-18.0); IMMATURE GRAN ABSOLUTE AUTO 0.02 K/uL (0.00-0.05); IMMATURE GRAN PERCENT AUTO 0.2 % (0.0-0.4); LYMPHOCYTES ABSOLUTE AUTO 2.05 K/uL (1.00-4.80); LYMPHOCYTES PERCENT AUTO 23.8 % (24.0-44.0); MEAN CORPUSCULAR HEMOGLOBIN 34.6 pg (28.0-32.0); MEAN CORPUSCULAR HGB CONC 36.6 g/dL (32.0-36.0); MEAN CORPUSCULAR VOLUME 94.7 fL (83.0-99.0); MEAN PLATELET VOLUME 8.8 fL (9.4-12.4); MONOCYTES ABSOLUTE AUTO 0.69 K/uL (0.00-0.80); NEUTROPHILS ABSOLUTE AUTO 5.82 K/uL (1.80-7.70); NEUTROPHILS PERCENT AUTO 67.4 % (41.0-71.0); PLATELET COUNT,PLT 172 K/uL (150-400); RED BLOOD CELL COUNT 4.36 M/uL (4.52-5.90); WHITE BLOOD CELL COUNT,WBC 8.63 K/uL (3.9-11.3)
[2023-06-28 16:56] LABS: INR 1.02 (0.86-1.11); PTT,PARTIAL THROMBOPLSTIN TIME 25.2 SEC (23.9-30.7)
[2023-06-28 17:07] LABS: A/G RATIO 1.1 (0.9-1.6); ACETAMINOPHEN <2.0 ug/mL; ALANINE AMINOTRANSFERASE,ALT 63 IU/L (14-63); ALBUMIN 4.6 g/dL (3.4-5.0); ALKALINE PHOSPHATASE 86 U/L (46-116); ASPARTATE AMNIOTRANSFERASE,AST 53 IU/L (15-37); BILIRUBIN TOTAL 0.7 mg/dL (0.2-1.0); BLOOD UREA NITROGEN,BUN 16 mg/dL (7.0-18.0); CALCIUM 9.4 mg/dL (8.5-10.1); CARBON DIOXIDE,CO2 24.7 mmol/L (21.0-32.0); CHLORIDE,CL 101 mmol/L (98-107); CREATINE KINASE,CK 74 U/L (26-308); CREATININE 1.2 mg/dL (0.8-1.3); EST CRCL DRUG DOSING (CG) 93.25 mL/min; ETHANOL BLOOD MEDICAL 230 mg/dL; GLUCOSE RANDOM 101 mg/dL (74-106); LIPASE 28 U/L (16-77); MAGNESIUM 1.9 mg/dL (1.8-2.4); POTASSIUM,K 3.2 mmol/L (3.5-5.1); PROTEIN TOTAL,TP 8.6 g/dL (6.4-8.2); SALICYLATE 0.6 mg/dL (0.0-20.0); SODIUM,NA 141 mmol/L (136-148)
[2023-06-28 17:13] LABS: ESTIMATED GFR 82 mL/min (>60)
[2023-06-28] MEDS ORDERED: Iopamidol 755 Mg/ML 100 ML Bottle IVPUSH ONE (18:22)
[2023-06-28 21:25] LABS: TSH ULTRASENSITIVE 0.44 uIU/mL (0.36-3.74)
[2023-06-29] MEDS ORDERED: LORazepam 2 MG/ML SDV IVPUSH PRN (01:22)
[2023-06-29] MEDS ORDERED: Potassium Chloride 20 MEQ Tab.ER PO ONE ×2 (01:24→07:43)
[2023-06-29] MEDS ORDERED: Thiamine 200 MG/2 ML MDV IVPUSH SCH (01:30)
[2023-06-29] MEDS: Folic Acid 1 MG/0.2 ML UD Syringe SUBCUT SCH ×2 (01:44→01:48)
[2023-06-29 06:46] LABS: BASOPHILS ABSOLUTE AUTO 0.04 K/uL (0.00-0.20); BASOPHILS PERCENT AUTO 0.7 % (0.0-1.0); EOSINOPHILS ABSOLUTE AUTO 0.02 K/uL (0.00-0.45); EOSINOPHILS PERCENT AUTO 0.4 % (0.0-6.0); HEMATOCRIT 35.1 % (42.0-52.0); HEMOGLOBIN 12.9 g/dL (14.0-18.0); IMMATURE GRAN ABSOLUTE AUTO 0.01 K/uL (0.00-0.05); IMMATURE GRAN PERCENT AUTO 0.2 % (0.0-0.4); LYMPHOCYTES ABSOLUTE AUTO 1.82 K/uL (1.00-4.80); LYMPHOCYTES PERCENT AUTO 32.3 % (24.0-44.0); MEAN CORPUSCULAR HEMOGLOBIN 35.2 pg (28.0-32.0); MEAN CORPUSCULAR HGB CONC 36.8 g/dL (32.0-36.0); MEAN CORPUSCULAR VOLUME 95.9 fL (83.0-99.0); MONOCYTES ABSOLUTE AUTO 0.51 K/uL (0.00-0.80); NEUTROPHILS ABSOLUTE AUTO 3.24 K/uL (1.80-7.70); NEUTROPHILS PERCENT AUTO 57.4 % (41.0-71.0); PLATELET COUNT,PLT 136 K/uL (150-400); RED BLOOD CELL COUNT 3.66 M/uL (4.52-5.90); WHITE BLOOD CELL COUNT,WBC 5.64 K/uL (3.9-11.3)
[2023-06-29 07:02] LABS: CALCIUM 8.9 mg/dL (8.5-10.1); CARBON DIOXIDE,CO2 24.8 mmol/L (21.0-32.0); CREATININE 1.2 mg/dL (0.8-1.3); EST CRCL DRUG DOSING (CG) 87.56 mL/min; MAGNESIUM 1.6 mg/dL (1.8-2.4); POTASSIUM,K 3.4 mmol/L (3.5-5.1)
[2023-06-29] MEDS ORDERED: Magnesium Sulfate/Water 2 GM in Premix Bag 1 BAG IV ONE (07:43)
== END 2023-06-29 08:35 | disposition home or self-care (01) ==
LOC: MW.ED 15:43 → MW.MS 22:23
PROVIDERS: ADMIT Internal Medicine; ATTEND Internal Medicine
DX: T43.591A Poisoning by other antipsychotics and neuroleptics, accidental (unintentional), initial encounter (principal); F10.10 Alcohol abuse, uncomplicated; R00.0 Tachycardia, unspecified; F17.210 Nicotine dependence, cigarettes, uncomplicated; Z79.899 Other long term (current) drug therapy; Z98.890 Other specified postprocedural states; Z20.822 Contact with and (suspected) exposure to COVID-19; Y90.7 Blood alcohol level of 200-239 mg/100 ml
CPT/HCPCS: 36415; 70450; 71275; 72125; 72128; 72131; 73562; 73590; 74177; 80048; 80053; 80143; 80179; 80305; 80307; 82550; 83690; 83735; 84443; 84484; 85025; 85610; 85730; 87635; 93005; 96361; 96372; 96374; 96375; 99291; A9270; G0378; J2060; J2405; J3411; J3490; J7030; Q9967; 93010; U0002

== ENCOUNTER 2023-06-29 19:11 | Emergency (ER) | payer SELFPAY ==
[2023-06-29 20:15] LABS: BASOPHILS ABSOLUTE AUTO 0.05 K/uL (0.00-0.20); BASOPHILS PERCENT AUTO 0.7 % (0.0-1.0); EOSINOPHILS ABSOLUTE AUTO 0.04 K/uL (0.00-0.45); EOSINOPHILS PERCENT AUTO 0.6 % (0.0-6.0); HEMOGLOBIN 13.8 g/dL (14.0-18.0); IMMATURE GRAN ABSOLUTE AUTO 0.01 K/uL (0.00-0.05); IMMATURE GRAN PERCENT AUTO 0.1 % (0.0-0.4); LYMPHOCYTES ABSOLUTE AUTO 2.12 K/uL (1.00-4.80); LYMPHOCYTES PERCENT AUTO 31.8 % (24.0-44.0); MEAN CORPUSCULAR HEMOGLOBIN 34.9 pg (28.0-32.0); MEAN CORPUSCULAR HGB CONC 36.3 g/dL (32.0-36.0); MEAN CORPUSCULAR VOLUME 96.2 fL (83.0-99.0); MEAN PLATELET VOLUME 8.8 fL (9.4-12.4); MONOCYTES ABSOLUTE AUTO 0.49 K/uL (0.00-0.80); MONOCYTES PERCENT AUTO 7.3 % (0.0-8.0); NEUTROPHILS ABSOLUTE AUTO 3.96 K/uL (1.80-7.70); NEUTROPHILS PERCENT AUTO 59.5 % (41.0-71.0); PLATELET COUNT,PLT 157 K/uL (150-400); RED BLOOD CELL COUNT 3.95 M/uL (4.52-5.90); WHITE BLOOD CELL COUNT,WBC 6.67 K/uL (3.9-11.3)
[2023-06-29 20:30] LABS: A/G RATIO 1.1 (0.9-1.6); ACETAMINOPHEN <2.0 ug/mL; ALANINE AMINOTRANSFERASE,ALT 47 IU/L (14-63); ALBUMIN 4.1 g/dL (3.4-5.0); ALKALINE PHOSPHATASE 88 U/L (46-116); ASPARTATE AMNIOTRANSFERASE,AST 34 IU/L (15-37); BILIRUBIN TOTAL 0.5 mg/dL (0.2-1.0); BLOOD UREA NITROGEN,BUN 14 mg/dL (7.0-18.0); CALCIUM 9.3 mg/dL (8.5-10.1); CARBON DIOXIDE,CO2 21.9 mmol/L (21.0-32.0); CHLORIDE,CL 105 mmol/L (98-107); CREATININE 1.2 mg/dL (0.8-1.3); EST CRCL DRUG DOSING (CG) 87.56 mL/min; ETHANOL BLOOD MEDICAL 202 mg/dL; GLUCOSE RANDOM 98 mg/dL (74-106); POTASSIUM,K 3.5 mmol/L (3.5-5.1); PROTEIN TOTAL,TP 7.9 g/dL (6.4-8.2); SALICYLATE 0.4 mg/dL (0.0-20.0); SODIUM,NA 143 mmol/L (136-148)
[2023-06-29 20:31] LABS: ESTIMATED GFR 82 mL/min (>60)
== END 2023-06-29 20:50 | disposition other institution (70) ==
LOC: MW.ED 19:11
DX: F10.929 Alcohol use, unspecified with intoxication, unspecified (principal); I48.91 Unspecified atrial fibrillation; Z86.16 Personal history of COVID-19
CPT/HCPCS: 36415; 80053; 80143; 80179; 80307; 84484; 85025; 99283; 99284